=== PATIENT | male | born 1965 | race Caucasian/White ===

== ENCOUNTER 2024-09-02 10:16 | Outpatient (CLI) | payer BC | END 2024-09-02 10:17 | disposition home or self-care (01) | LOC: SCSMRI 10:16 | PROVIDERS: ATTEND Family Medicine | DX: M54.81 Occipital neuralgia (principal); R51.9 Headache, unspecified; M47.812 Spondylosis without myelopathy or radiculopathy, cervical region; M50.21 Other cervical disc displacement, high cervical region; M48.02 Spinal stenosis, cervical region; M50.221 Other cervical disc displacement at C4-C5 level | CPT/HCPCS: 72141 ==